=== PATIENT | female | born 1945 | race Hispanic/Latino ===

== ENCOUNTER → 2021-01-30 17:45 | Outpatient (CLI) | payer OTHER, SELFPAY ==
--- NOTE | ~2021-01-30 | MM_ITS ---
EXAMINATION: MM screening [facility] BI w ngozi HISTORY: Screening mammogram TECHNIQUE: Craniocaudal and mediolateral oblique 3-D tomosynthesis images were obtained and synthetic 2-D images were generated. CAD analysis was submitted and interpreted. COMPARISON: 04/09/2019, 07/04/2017 bilateral digital screening mammogram examinations BREAST PARENCHYMAL COMPOSITION: There are scattered areas of fibroglandular density. FINDINGS: There is no evidence of suspicious mass, calcification, or architectural distortion to sugg est malignancy in either breast. There has been no suspicious interval change. IMPRESSION: 1. No mammographic evidence of malignancy. 2. Recommend routine screening mammography in one year. BI-RADS Category 1: Negative Reviewed, dictated and finalized at location A.
== END ==
PROVIDERS: Visit Provider Family Medicine
DX: Z12.31 Encounter for screening mammogram for malignant neoplasm of breast (principal)
CPT/HCPCS: 77063; 77067

== ENCOUNTER → 2021-10-14 08:46 | Outpatient (CLI) | payer OTHER, SELFPAY ==
[2021-10-14 19:37] LABS: SARS-CoV-2 RNA PCR Positive
== END ==
PROVIDERS: PCP Family Medicine; Visit Provider Nurse Practitioner Gerontology
DX: U07.1 COVID-19 (principal)
CPT/HCPCS: C9803; U0003; U0005

== ENCOUNTER 2022-12-16 08:57 | Outpatient (CLI) | payer OTHER, SELFPAY ==
--- NOTE | ~2022-12-16 | XR_ITS ---
Supine and upright views of the abdomen Clinical history: Abdominal pain Findings: Bowel gas pattern is nonspecific. No evidence for obstruction or free air. Probable calcifi ed pelvic phleboliths. Osseous structures are intact. Impression: No significant abnormality is seen. Reviewed, dictated and finalized at [facility]. Impression: No significant abnormality is seen.
== END 2022-12-16 08:58 | disposition home or self-care (01) ==
PROVIDERS: PCP Family Medicine; Visit Provider Nurse Practitioner Gerontology
DX: R10.9 Unspecified abdominal pain (principal)
CPT/HCPCS: 74018

== ENCOUNTER 2023-03-24 10:03 | Outpatient (CLI) | payer OTHER, SELFPAY ==
--- NOTE | ~2023-03-24 | XR_ITS ---
Right Knee Technique: AP, lateral, and sunrise views were obtained. Clinical History: Pain Findings: No fracture or dislocation is seen. Osseous alignment is anatomic. Minimal degenerative spu rring noted. Soft tissues are unremarkable. No joint effusion is seen. Impression: Minimal degenerative spurring. Reviewed, dictated and finalized at location . Impression: Minimal degenerative spurring.
== END 2023-03-24 10:04 | disposition home or self-care (01) ==
PROVIDERS: PCP Family Medicine; Visit Provider Physician Assistant
DX: M25.561 Pain in right knee (principal)
CPT/HCPCS: 73562

== ENCOUNTER 2023-04-28 08:35 | Outpatient (CLI) | payer OTHER, SELFPAY ==
--- NOTE | ~2023-04-28 | MM_ITS ---
EXAMINATION: MM screening [facility] BI w ngozi HISTORY: Screening mammogram TECHNIQUE: Craniocaudal and mediolateral oblique 3-D tomosynthesis images were obtained and synthetic 2-D images were generated. CAD analysis was submitted and interpreted. COMPARISON: 01/30/2021, 04/09/2019, 07/04/2017 BREAST PARENCHYMAL COMPOSITION: There are scattered areas of fibroglandular density. FINDINGS: No suspicious mass, calcification, or architectural distortion are identified in either dilip ast to suggest malignancy. There has been no suspicious interval change. IMPRESSION: 1. No mammographic evidence of malignancy. 2. Recommend routine screening mammography in one year. BI-RADS Category 1: Negative Reviewed, dictated and finalized at location A.
== END 2023-04-28 08:36 | disposition home or self-care (01) ==
PROVIDERS: PCP Family Medicine; Visit Provider Family Medicine
DX: Z12.31 Encounter for screening mammogram for malignant neoplasm of breast (principal)
CPT/HCPCS: 77063; 77067

== ENCOUNTER 2024-02-28 10:43 | Outpatient (CLI) | payer OTHER, SELFPAY ==
--- NOTE | ~2024-02-28 | XR_ITS ---
Supine and upright views of the abdomen Clinical history: Constipation COMPARISON: 12/16/2022 Findings: Bowel gas pattern is nonspecific. No evidence for obstruction or free air. No abnormal mass lesion or calcification is seen. Mild degenerative change of the lumbar spine noted. Impression: Nonspecific bowel gas pattern. Reviewed, dictated and finalized at [facility]. Impression: Nonspecific bowel gas pattern.
== END 2024-02-28 10:44 | disposition home or self-care (01) ==
PROVIDERS: PCP Family Medicine; Visit Provider Family Medicine
DX: K59.00 Constipation, unspecified (principal)
CPT/HCPCS: 74018

== ENCOUNTER 2024-03-01 12:45 | Emergency (ER) | payer OTHER, SELFPAY ==
[2024-03-01] VITALS (11 sets, daily range): BP systolic 108–130; BP diastolic 61–92; PULSE 68–75; RESP 16–18; TEMP 36.6; O2SAT 95–98
--- NOTE | ~2024-03-01 | CT_ITS ---
EXAMINATION: CT abdomen pelvis w con DATE: 03/01/2024 15:51 INDICATION: Abdominal pain TECHNIQUE: Computed tomography (CT) of the abdomen and pelvis was performed with 100 cc Omnipaque 350 intravenous contrast. The dose-length product was 458.52 mGy-cm. Automated exposure control and iter ative reconstruction technique were employed. COMPARISON: None. FINDINGS: There is a complex ill-defined mass in the right adnexa measuring up to 9.5 cm craniocaudal , suspicious for ovarian neoplasm. There is moderate ascites. There is peritoneal and mesenteric stra nding anteriorly in the upper abdomen, suspicious for peritoneal carcinomatosis. Fatty infiltration o f the liver. Gallstones. Small hiatal hernia. There is dependent atelectasis. No significant vascular abnormality. No evidence for bowel obstruction. No free air. No retroperitoneal lymphadenopathy. The re is endometrial thickening. IMPRESSION: 1. Complex right adnexal mass, suspicious for ovarian cystadenocarcinoma. Consider correlation with u ltrasound. Possible peritoneal carcinomatosis with moderate ascites. 2: Fatty infiltration of the liver. 3: Cholelithiasis. 4: Thickened endomtrial complex. The differential diagnosis includes endometrial hyperplasia, polyp a nd carcinoma. Biopsy is recommended. Reviewed, dictated and finalized at location B. IMPRESSION: 1. Complex right adnexal mass, suspicious for ovarian cystadenocarcinoma. Consi ozzy correlation with ultrasound. Possible peritoneal carcinomatosis with modera te ascites. 2: Fatty infiltration of the liver. 3: Cholelithiasis. 4: Thickened endomtrial complex. The differential diagnosis includes endometria l hyperplasia, polyp and carcinoma. Biopsy is recommended.
--- NOTE | ~2024-03-01 | US_ITS ---
US pelvic complete Ordering provider: Pascual Morales MD History: . pelvic mass . Comparison: None. Technique: Transabdominal and endovaginal ultrasound of the pelvis (Doppler ultrasound interrogation techniques used as needed for this exam.) FINDINGS: CERVIX: Normal. UTERUS: Measures 8x 3.3x 6.1 cm in length which is within normal limits and is anteverted. No myomet rial masses. ENDOMETRIUM: Fluid is seen in the endometrial cavity.. CUL DE SAC seen bilaterally in the adnexal areas. RIGHT OVARY: size measuring 10.2x 5.2x 10.5 . Adnexal masses seen which appears heterogenous in echo genicity. LEFT OVARY: Not visualized. ADNEXA: Normal. No mass. IMPRESSION: Right ovarian mass. MRI or CT evaluation advised. Fluid seen in the bilateral adnexal areas. Fluid in the endometrial cavity. Clinical evaluation advised. Reviewed, dictated and finalized at location A.
[2024-03-01 14:49] LABS: Basophils Absolute Auto 0.1 K/mm3 (0.0-0.1); Basophils Percent Auto 0.7 % (0.2-1.2); Eosinophils Absolute Auto 0.1 K/mm3 (0-0.3); Eosinophils Percent Auto 1.2 % (0-4.4); Hematocrit 39.3 % (37.0-47.0); Hemoglobin 12.2 g/dL (12.0-15.0); Immature Granulocyte Absolute 0.02 K/mm3 (0.00-0.031); Immature Granulocyte Percent A 0.2 % (0-0.5); Lymphocytes Absolute Auto 1.54 K/mm3 (0.9-3.2); Lymphocytes Percent Auto 18.6 % (18.3-44.2); Mean Corpuscular Hemoglobin 28.7 pg (26-34); Mean Corpuscular Volume 92.5 fl (80-100); Mean Platelet Volume 8.9 fl (7.4-10.4); Monocytes Absolute Auto 0.7 K/mm3 (0.1-0.6); Monocytes Percent Auto 8.1 % (2.6-8.5); Neutrophils Absolute Auto 5.9 K/mm3 (1.3-6.7); Neutrophils Percent Auto 71.2 % (45.5-73.1); Platelet Count Result 396 k/mm3 (150-375); Red Blood Count 4.25 M/mm3 (4.2-5.4); Red Cell Distribution Width 12.9 % (11.5-14.5); White Blood Count 8.3 K/mm3 (4.5-10.0)
[2024-03-01 15:11] LABS: Appearance Urine Cloudy (Clear); Bacteria Urine None Seen /hpf; Bilirubin Urine 2+ (Negative); Blood Urine 1+ (Negative); Color Urine Dark Yellow (Yellow); Glucose Urine UA Negative (Negative); Ketones Urine 2+ mg/dL (Negative); Leukocyte Esterase Ur 1+ LEU/UL (Negative); Mucus Urine Present /lpf; Need Manual Microscopic Reviewed; Nitrate Urine Negative (Negative); Non Pathogenic Casts >20; Protein Urine 1+ mg/dL (Negative); Specific Grav Ur 1.023 (1.001-1.035); Squamous Epithelial Cell Urine Moderate /hpf (Few); pH Urine 5.5 (5.0-9.0)
[2024-03-01 15:12] LABS: Alanine Aminotransferase 19 U/L (6-35); Albumin Level 4.1 g/dL (3.5-5.1); Alkaline Phosphatase 82 U/L (38-126); Anion Gap 9 mmol/L (4-12); Aspartate Amino Transferase 35 U/L (14-36); Bilirubin,Total 0.8 mg/dL (0.2-1.3); Blood Urea Nitrogen 14 mg/dL (7-17); Carbon Dioxide 25 mmol/L (22-30); Chloride 100 mmol/L (98-107); Estimated CRCL calculation 39 ml/min; Estimated Glomerular Filt Rate > 60; Glucose 109 mg/dL (65-110); Lipase 304 U/L (23-300); Potassium 4.1 mmol/L (3.4-5.0); Sodium 134 mmol/L (137-145)
[2024-03-01 15:16] LABS: Add Urine Microscopic? YES
[2024-03-01] MEDS: SODIUM CHLORIDE 0.9% IV 1,000 ML 999 ML IV CONT (17:50)
--- NOTE | 2024-03-01 18:05 | ED.ABDPAIN ---
HPI - Abdominal Pain General Chief Complaint: Abdominal Pain Stated Complaint: hx of blockage, abd pain, diarrhea Time Seen by Provider: 03/01/24 15:28 Source: patient Mode of arrival: ambulatory Limitations: no limitations History of Present Illness HPI narrative: 78-year-old history of osteoporosis and dyslipidemia here with the complaints of left upper quadrant pain for past 1 week. Patient states that she saw primary was given linzess thinking in terms of constipation , pt stated her pain has been steady and she is worried about bowel obstruction ,She also complaints of occasional nausea but no vomiting MD elicited complaint: abdominal pain Onset (ago): week(s) (1) Pain Consistency: constant Location: LUQ Quality: aching Radiation: LUQ Migration to: suprapubic Exacerbating factors: nothing Relieving factors: nothing Associated symptoms: nausea Related Data Home Medications Medication Instructions Recorded Confirmed vibegron 75 mg tablet (Gemtesa) 75 mg PO DAILY 05/17/22 02/28/24 cephalexin 250 mg tablet 250 mg PO DAILY 03/24/23 02/28/24 Allergies Allergy/AdvReac Type Severity Reaction Status Date / Time Sulfa (Sulfonamide Allergy Unknown vision Verified 02/28/24 10:04 Antibiotics) loss,diarrhea Review of Systems Review of Systems: All systems reviewed & are unremarkable except as noted in HPI and below Constitutional: Constitutional: Reports no additional constitutional complaints Eyes: Eyes: Reports no additional eye complaints ENT: Reports system reviewed and no additional complaints, except as documented Cardiovascular: Cardiovascular: Reports no additional cardiovascular complaints Respiratory: Respiratory: Reports no additional respiratory complaints Gastrointestinal: Gastrointestinal: Reports as per HPI Musculoskeletal: Musculoskeletal: Reports no additional musculoskeletal complaints Neurologic: Reports system reviewed and no additional complaints, except as documented Psychiatric: Psychiatric: Reports no additional psychiatric complaints [facility] Past Medical History Medical History (Updated 03/01/24 @ 18:16 by Pascual Morales MD) Mixed hyperlipidemia Osteopenia Family History Family History Father Patient's father is Social History Social History Social History: Smoking status: Never smoker Second hand tobacco smoke exposure: No Alcohol intake: never Substance use: never Substance use type: does not use Do You Feel Safe in your Home?: Yes Lack of Transportation: No Lack of Food: Never True Current Housing: I Have Housing Concerned About Future Housing: No Difficulty Paying Gas/Electric Bills: No Difficulty Paying for Meds: No Currently Unemployed: YES Education: Decline to Answer Difficulty w/ Childcare or Family Care: No Living arrangements: with family Occupation/Education: retired Gender identity (if verbalized by the patient): Female Sexual Orientation (if Verbalized by the Patient): Straight or Heterosexual Exam Narrative: GENERAL: Well-appearing, well-nourished, and in no acute distress. HEAD: Normocephalic, atraumatic. EYES: PERRLA and EOMI. ENT: Nares clear, no rhinorrhea or epistaxis. Mucous membranes moist. NECK: Supple. CHEST: Clear to auscultation. No respiratory distress. HEART: Regular rate and rhythm. No murmur heard. Normal peripheral pulses. ABDOMEN: Soft, nontender, mildly distended, normal active bowel sounds. EXTREMITIES: Normal range of motion. No edema. SKIN: Warm, dry, no rash. NEURO: No focal deficits. Alert and oriented x3. PSYCH: Normal mood and affect. Course Course Emergency Course: Notified patient about her lab work, CT findings. I discussed with the Dr. Weaver as well. Spoke to Dr. Gray [facility] at [facility] will follow up in the office next wk , i
== END 2024-03-01 19:42 | disposition home or self-care (01) ==
PROVIDERS: Emergency Provider Family Medicine; PCP Family Medicine
DX: N94.89 Other specified conditions associated with female genital organs and menstrual cycle (principal); R10.84 Generalized abdominal pain; M81.0 Age-related osteoporosis without current pathological fracture; E78.2 Mixed hyperlipidemia; K76.0 Fatty (change of) liver, not elsewhere classified; K80.20 Calculus of gallbladder without cholecystitis without obstruction; R93.89 Abnormal findings on diagnostic imaging of other specified body structures; Z79.899 Other long term (current) drug therapy
CPT/HCPCS: 36415; 74177; 76856; 80053; 81001; 83690; 85025; 87086; 96360; 99284; J7030; Q9967

== ENCOUNTER 2025-04-12 13:06 | Outpatient (CLI) | payer OTHER, SELFPAY ==
--- NOTE | ~2025-04-12 | DEXA_ITS ---
Bone Density Report Name: KEIRY BATRES Age: 79 Sex: Female Ethnicity: Date of : 1945 Indication: postmenopausal; screening for osteoporosis; height loss; cancer; hysterectomy; Referring Provider: THERON PEREYRA Study: Bone densitometry was performed. Exam Date: April 12, 2025 Accession number: [id number] Bone Density: Region BMD T-score Z-score Classification AP Spine(L1-L4) 0.874 -1.6 1.1 Osteopenia Femoral Neck (Left) 0.642 -1.9 0.3 Osteopenia Total Hip (Left) 0.685 -2.1 0.0 Osteopenia Femoral Neck (Right) 0.574 -2.5 -0.3 Osteoporosis Total Hip (Right) 0.685 -2.1 0.0 Osteopenia Total Hip Mean 0.685 -2.1 0.0 Osteopenia World Health Organization criteria for BMD impression classify patients as: Normal (T-score at or above -1.0), Osteopenia (T-score between -1.0 and -2.5), or Osteoporosis (T-score at or below -2.5). 10-year Fracture Risk: FRAX not reported because: Some T-score for Spine Total or Hip Total or Femoral Neck at or below -2.5 Treated for osteoporosis Clinical Information Provided by Patient: Is being treated for osteoporosis Has used the following medications: Fosamax (i.e. alendronate), Vitamin D, Calcium Has the following medical conditions: Cancer, Hysterectomy Patient maximum height was 64 Menopause Age: 50 No regular weight bearing exercise Does not regularly consume dairy products Drinks caffeinated beverages Onset of menses at age 13 Number of children 2 Impression: The patient has osteoporosis, based on the Right Femoral Neck T-score. Discussion: It is important to ask patients whether they are taking their medications and to encourage continued and appropriate compliance with their osteoporosis therapies to reduce fracture risk. It is also important to review their risk factors and encourage appropriate calcium and vitamin D intakes, exercise, fall prevention and other lifestyle measures. Follow-Up: Consider a repeat BMD and Vertebral Fracture Assessment (VFA) exam in 2 years or sooner if medically necessary, to reassess this patient's status. Reported by: FARIDA on 04/12/2025 1:56:00 PM. Reviewed, dictated and finalized at location A.
--- OUTSIDE RECORDS SUMMARY | 2025-04-12 13:13 | XMS_ITS | Continuity of Care Document ---
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 [facility], [place], [place], [id number], [place]. tel:[phone] Family History Family Member Type Diagnosis Age At Onset No Information Payers Payer name Insurance type Covered republican ID Authoriza tigino(s) [facility] Custom Care CI [id number] Social History Type Description Quantity Date Captured Comments Sex Female Smoking Status No Information Chief Complaint And Reason For Visit No Information Reason For Referral Reason For Referral No Information History Of Present Illness Encounter Date Complaint History Of Prese nt Illness No Information Functional Status Date Functional Assessmen t No Information Instructions Date Instruction Additional Infor mation No Information Assessments Type Assessment Date No Information Patient Care Teams Name Effective Dates (start - stop) Status Members No Information
--- OUTSIDE RECORDS SUMMARY | 2025-04-12 13:13 | XMS_ITS | Referral Summary ---
Author Organization [facility] Address [address] [place] [address] Care Team Providers Care Solar Sales Manager Name Role Phone Meg Castillo MD Primary Care Provider Encounters Date Type Department Care Team Description 02/25/2025 Documentation [facility] Obstetrics and Gynecology [address] [facility] 13th [place] [address] Lorna Segovia RN 02/25/2025 10:20 AM CDT Office Visit [facility] Obstetrics and Gynecology [address] [facility] 13th [place] [address] Tone Cardona MD 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) 02/25/2025 8:00 AM CDT - 02/25/2025 11:59 PM CDT Hospital Encounter [facility] [address] [place] [address] Tone Cardona MD Malignant neoplasm of fallopian tube, unspecified laterality (HCC) Discharge Disposition: Discharge to home or self care from Last 3 Months Allergies Active Allergy Reactions Criticality Noted Date Comments Sulfa Other (See comments) Low 03/04/2024 Vision problems and diarrhea Paclitaxel Shortness of breath,Other (See comments),Chest tightness,Flushing (skin) High 04/16/2024 Abdominal cramping Docetaxel Shortness of breath,Other (See comments),Flushing (skin) High 05/07/2024 Tightness in chest, lower back pain Medications gabapentin (NEURONTIN) solution 250 mg/5 mL Take 6 mL (300 mg total) by mouth 2 (two) times a day 360 mL 1 4 Active alendronate (FOSAMAX) 70 mg tablet TAKE 1 TABLET BY MOUTH ONCE WEEKLY 4 Active montelukast (SINGULAIR) 10 mg tabletIndicatio ns: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 7 tablet Active simvastatin (ZOCOR) 20 mg tablet Take 1 tablet (20 mg total) by mouth daily Active Active Problems Problem Noted Date Diagnosed Date Malignant neoplasm of right fallopian tube 03/26 Requires daily management of epidural infusion 0 03/18/2024 Acute postoperative abdominal pain 03/12/2024 Pelvic mass 03/12/2024 Abdominal mass, unspecified abdominal location 0 03/05/2024 Immunizations Immunization Administration Dates Next Due COVID-19 mRNA (SocStock) 0.3 m L (30 mcg) vaccine (12 years and up) 05/19/2024 Influenza, Quadrivalent, Hig h Dose, Preservative Free, Intrr 07/09/2023,06/05/2022,06/02/2021 Influenza, Trivalent, High D ose, Split, Preservative Free, Intramuscular 05/19/2024,06/20/2016,06/24/2015 Influenza, Trivalent, IM (MDV) 06/26/2014,2012 Pneumococcal Conjugate PCV 13 06/20/2016 RSV Vaccine, Pref, Recombina nt, Subunit, Adjuvanted, PF, IM (Arexvy) 08/03/2023 ZOSTER Recombinant 12/31/2020 Social History Tobacco Use Types Packs/Day Years Used Date Smoking Tobacco: Never Passive Smoke Exposure: Never Smokeless Tobacco: Never Tobacco Cessation:Counseling Given: Not Answered AUDIT-C Answer Date Recorded Q1: How often do you have a drink containing alcohol? Never 09/21/2024 Q2: How many drinks containi ng alcohol do you have on a typical day when you are drinking? Patient does not drink Q3: How often do you have si x or more drinks on one occasion? Never 09/21/2024 Personal Safety Answer Date Recorded Have you ever been in or are you currently in a harmful physical or emotional relationship or is someone making you feel afraid or unsafe? 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 Gender Identity Not on file Sexual Orientation Not on file Last Filed Vital Signs Vital Sign Reading Time Taken Comments Blood Pressure 125/75 02/25/2025 11:00 AM CDT Pulse 65 02/25/2025 11:00 AM CDT Temperature 36.7 C (98 F) 02/25/2025 11:00 AM CDT Respiratory Rate 16 02/25/2025 11:00 AM CDT Oxygen Saturation 99% 02/25/2025 11:00 AM CDT Inhaled Oxygen Concentration - - Weight 66 kg (145 lb 8 oz) 02/25/2025 11:00 AM C DT Height 162 cm (5' 3.78) 02/25/2025 11:00 AM CDT Body Mass Index 25.15 02/25/2025 11:00 AM CDT Plan of Treatment Not on file Medical Devices Implanted Type Area Video Poker Floorman Device Identifier Shelf Expiration Date Model / Serial / Lot Ang[employer] Excela Low Porfile Power Port 8fr 1.6mm 1 Lumen [id number] - [id number] Implanted:Qty: 1 on 04/13/[address] [facility] [employer] 11/19/2028 [id number] / / [id number] Procedures Procedure Name Priority Date/Time Associated Diagnosis Comments MAGNESIUM Routine 02/26/2025 9:47 AM CDT Malignant neoplasm of right fallopian tube (HCC) COMPREHENSIVE METABOLIC PANEL Routine 02/26/2025 9:45 AM CDT Malignant neoplasm of right fallopian tube (HCC) CBC WITH AUTO DIFFERENTIAL Routine 02/26/2025 9:45 AM CDT Malignant neoplasm of right fallopian tube (HCC) CA 125 Routine 02/26/2025 9:45 AM CDT Malignant neoplasm of right fallopian tube (HCC) CT ABDOMEN PELVIS W CONTRAST Schedule Routine, Read Routine (OP Routine) 02/25/2025 9:14 AM CDT Malignant neoplasm of fallopian tube, unspecified laterality (HCC) from Last 3 Months Results * Magnesium (02/26/2025 9:47 AM CDT) Magnesium 2.1 1.5 - 2.5 mg/dL [facility] Blood 02/26/2025 9:47 AM CDT 02/26/2025 9:47 AM CDT us Premks Delgado Cardona MD LAB BLOOD ORDERABLES Fin al Result [facility] [address] [place] [address] * CBC with auto differential (02/26/2025 9:45 AM CDT) WBC 4.3 3.8 - 10.8 Thousand/u L [facility] RBC, POC 3.90 3.80 - 5.10 Million/uL [facility] Hgb 12.5 11.7 - 15.5 g/dL [facility] Hct 38.8 35.0 - 45.0 % [facility] MCV 99.5 80.0 - 100.0 fL [facility] MCH 32.1 27.0 - 33.0 pg [facility] MCHC 32.2 32.0 - 36.0 g/dL [facility] Comment: For adults, a slight decrease in the calculated MCHC value (in the range of 30 to 32 g/dL) is most likely not clinically significant; however, it should be interpreted with caution in correlation with other red cell parameters and the patient's clinical condition. Rdw 12.3 11.0 - 15.0 % [facility] Platelets 200 140 - 400 Thousand/u L [facility] MPV 9.7 7.5 - 12.5 fL [employer] Neutrophils, abs 2,339 1,500 - 7,800 cells/uL [employer] Lymphocytes, abs 1,492 850 - 3,900 cells/uL [employer] Monocyte abs 348 200 - 950 cells/uL [employer] Eosinophils, abs 90 15 - 500 cells/uL [employer] Basophils, abs 30 0 - 200 cells/uL [employer] Neutrophils 54.4 % [employer] Lymphocyte pct 34.7 % [employer] Monocytes 8.1 % [employer] Eosinophils 2.1 % [employer] Basophils 0.7 % [employer] Blood 02/26/2025 9:45 AM CDT 02/26/2025 9:46 AM CDT Narrative [facility] - 02/27/2025 1:42 AM CDT FASTING:NO FASTING: NO [facility] Delgado Cardona MD LAB BLOOD ORDERABLES Fin al Result Performing Organization Address City/[facility]/ZIP Co de Phone Number [facility] [address] [place] [address] * CA 125 (02/26/2025 9:45 AM CDT) CA 125 ag 10 <35 U/mL [employer] Comment: This test was performed using the Siemens Chemiluminescent method. Values obtained from different assay methods cannot be used interchangeably. CA 125 levels, regardless of value, should not be interpreted as absolute evidence of the presence or absence of disease. Blood 02/26/2025 9:45 AM CDT 02/26/2025 9:46 AM CDT Narrative [facility] - 02/27/2025 1:42 AM CDT FASTING:NO FASTING: NO [facility] Delgado Cardona MD LAB BLOOD ORDERABLES Fin al Result [facility] [address] [place] [address] * Comprehensive metabolic panel (02/26/2025 9:45 AM CDT) [facility] Glucose 99 65 - 99 mg/dL Maryam BritoAnimailBlanche Marquez Comment: Fasting reference interval BUN 13 7 - 25 mg/dL Maryam Marquez Creatinine 0.89 0.60 - 1.00 mg/dL Maryam [facility] eGFR 66 > OR = 60 mL/min/1.7 3m2 Maryam Marquez BUN/creat ratio SEE NOTE: 6 - 22 (calc) Maryam Marquez Comment: Not Reported: BUN and Creatinine are within reference range. Sodium 142 135 - 146 mmol/L Maryam Brit[facility]Bl[facility] Marquez Potassium, pl 5.0 3.5 - 5.3 mmol/L Mary[facility] Chloride 107 98 - 110 mmol/L Maryam [facility] CO2 31 20 - 32 mmol/L Maryam [facility] Calcium 9.2 8.6 - 10.4 mg/dL Maryam [facility] Protein, sr 6.7 6.1 - 8.1 g/dL Maryam [facility]AnimailBlanche Marquez Albumin 4.1 3.6 - 5.1 g/dL Maryam [facility] Mar[facility] GLOBULIN 2.6 1.9 - 3.7 g/dL (calc) Maryam [facility] Alb/glob ratio 1.6 1.0 - 2.5 (calc) Maryam [facility] Bilirubin, total 0.4 0.2 - 1.2 mg/dL Maryam BritoAnimailBlanche Marquez Alk phos 62 37 - 153 U/L Maryam [facility] AST 23 10 - 35 U/L Maryam Telsar PharmaBlanche Marquez ALT (SGPT) 21 6 - 29 U/L Maryam [facility] Blood 02/26/2025 9:45 AM CDT 02/26/2025 9:46 AM CDT Narrative [facility] - 02/27/2025 1:42 AM CDT FASTING:NO FASTING: NO us Premal Delgado Cardona MD LAB BLOOD ORDERABLES Fin al Result [facility] [address] [place] [address] * CT Abdomen Pelvis W Contrast (02/25/2025 9:14 AM CDT) Anatomical Region Laterality Modality Body N/A Computed Tomogra phy 02/25/2025 9:44 AM CDT Impressions 02/26/2025 1:18 PM CDT 1. No evidence of recurrent or metastatic disease in the abdomen or pelvis. 2. Resolution of right pelvic sidewall fluid collection. Dictated by: Bebeto Powell MD The radiology attending physician has personally reviewed this study, and had reviewed and/or edited this written report and agrees with it. Electronically signed by: Rosalia Blackburn M.D. 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 COMPARISON: CT dated 08/17/2024. FINDINGS: Mild dependent atelectasis within the lung bases. No pleural or pericardial effusion. No suspicious hepatic lesion. Portal and hepatic veins. No biliary ductal dilation. Cholelithiasis without evidence of acute cholecystitis. The spleen, adrenal glands, and pancreas are normal. The kidneys enhance symmetrically without hydronephrosis or nephrolithiasis. Small cyst of the right kidney. The urinary bladder is normal. There are post surgical changes of hysterectomy with bilateral salpingo-oophorectomy, omentectomy, and pelvic lymph node dissection. 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 Interval resolution of a fluid collection within the right lower quadrant, with associated fat stranding overlying the anterior abdominal wall from prior percutaneous drain. No bowel thickening or obstruction. No free fluid or intraperitoneal free air. No abdominal or pelvic lymphadenopathy. No omental or peritoneal disease. Abdominal aorta is normal in caliber. No suspicious lytic or blastic lesion. 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 COMPARISON: CT dated 08/17/2024. FINDINGS: Mild dependent atelectasis within the lung bases. No pleural or pericardial effusion. No suspicious hepatic lesion. Portal and hepatic veins. No biliary ductal dilation. Cholelithiasis without evidence of acute cholecystitis. The spleen, adrenal glands, and pancreas are normal. The kidneys enhance symmetrically without hydronephrosis or nephrolithiasis. Small cyst of the right kidney. The urinary bladder is normal. There are post surgical changes of hysterectomy with bilateral salpingo-oophorectomy, omentectomy, and pelvic lymph node dissection. 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 Interval resolution of a fluid collection within the right lower quadrant, with associated fat stranding overlying the anterior abdominal wall from prior percutaneous drain. No bowel thickening or obstruction. No free fluid or intraperitoneal free air. No abdominal or pelvic lymphadenopathy. No omental or peritoneal disease. Abdominal aorta is normal in caliber. No suspicious lytic or blastic lesion. IMPRESSION: 1. No evidence of recurrent or metastatic disease in the abdomen or pelvis. 2. Resolution of right pelvic sidewall fluid collection. Dictated by: Bebeto Powell MD The radiology attending physician has personally reviewed this study, and had reviewed and/or edited this written report and agrees with it. Electronically signed by: Rosalia Blackburn M.D. [facility] Delgado Cardona MD IM CT PROCEDURES Final Result from Last 3 Months Insurance Intern [place] ADVANTAGE CHOICE PPO [employer] ADVANTAGE CHOICE PPO Advance Directives For more information, please contact: [phone] Documents on File Type Date Recorded Patient Ship/Rec/Doc Control Expl anation ADVANCE DIRECTIVE 05/18/2024 11:53 AM Bridger r of Photo Retoucher-Medical * Full Code (Latest Code Status on File) Date Activated Date Inactivated Comments 09/21/2024 7:45 AM 09/22/2024 4:44 AM * Full Code Date Activated Date Inactivated Comments 09/07/2024 8:08 AM 09/08/2024 4:51 AM * Full Code Date Activated Date Inactivated Comments 08/28/2024 11:57 AM 08/29/2024 4:48 AM * Full Code Date Activated Date Inactivated Comments 04/13/2024 1:35 PM 04/14/2024 4:45 AM * Full Code Date Activated Date Inactivated Comments 03/12/2024 9:40 PM 03/18/2024 9:13 PM Care Teams Solar Sales Manager Relationship Specialty Start Date End Date Meg Castillo MD [address] [address] PCP - General Family Medicine 03/02/24
--- OUTSIDE RECORDS SUMMARY | 2025-04-12 13:13 | XMS_ITS | Clinical Summary ---
Author Organization [facility] Address [address] [place] [address] Care Team Providers Care Gis Engineer Name Role Phone Meg Castillo MD Primary Care Provider Allergies Active Allergy Reactions Criticality Noted Date [...] 7 morning before your treatment. 7 tablet 4 Active simvastatin (ZOCOR) 20 mg tablet Take 1 tablet (20 mg total) by mouth daily 4 Active Active Problems Problem Noted Date Diagnosed Date Malignant neoplasm of right fallopian tube 03/26 Requires daily management of epidural infusion 0 03/18/2024 Acute postoperative abdominal pain 03/12/2024 Pelvic mass 03/12/2024 Abdominal mass, unspecified abdominal location 0 03/05/2024 Encounters Date Type Department Care Team Description 02/25/2025 10:20 AM CDT Office Visit 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 Obstetrics and Gynecology [address] [facility] 13th [place] [address] Lorna Segovia RN from Last 3 Months Immunizations Immunization Administration Dates Next Due COVID-19 mRNA (Cranberry Chic) 0.3 m L (30 mcg) vaccine (12 years and up) 05/19/2024 Influenza, Quadrivalent, Hig h Dose, Preservative Free, Intrr 07/09/2023,06/05/2022,06/02/2021 Influenza, Trivalent, High D ose, Split, Preservative Free, Intramuscular 05/19/2024,06/20/2016,06/24/2015 Influenza, Trivalent, IM (MDV) 06/26/2014,2012 Pneumococcal Conjugate PCV 13 06/20/2016 RSV Vaccine, Pref, Recombina nt, Subunit, Adjuvanted, PF, IM (Arexvy) 08/03/2023 ZOSTER Recombinant 12/31/2020 Surgical History Surgery Date Site/Laterality Comments MYOMECTOMY ABDOMINAL APPROACH 09/19/1979 - 09/18/1980 US GUIDED BIOPSY ABDOMEN RETROPERITONEAL 03/06/2024 N/A PORT PLACEMENT CHEST >5 YEARS 04/13/2024 N/A US GUIDED ASPIRATION ABSCESS HEMATOMA CYST SOFT TISSUE 06/28/2024 N/A IMAGE GUIDED DRAINAGE PERITO RIKKI OR RETROPERITONEAL FLUID COLLECTION 08/28/2024 N/A Medical History Medical History Date Comments High cholesterol Ovarian cancer (HCC) Family History Medical History Relation Name Comments Anesthesia problems Neg Hx Social History Tobacco Use Types Packs/Day Years [...] on file 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 Gender Identity Not on file Sexual Orientation Not on file Obstetrics History Para Term AB IAB SAB Ectopic Multiple Livin g Live Births 2 2 2 2 Date Outcome GA Total Labor Labor/2nd/3rd Weight Sex Type Anes PTL Jerilyn A1 A5 Name Clin Term Vag-Spo nt Term Vag-Spo nt Last Filed Vital Signs Vital Sign Reading [...] 02/25/2025 11:00 AM CDT Plan of Treatment Health Maintenance Due Date Last Done Comments Depression Screening 1945 Hepatitis C Screening 1945 Osteoporosis Screening-Bone Density Scan 1945 DTaP/Tdap/Td Vaccine (1 - Tdap) 1956 Hepatitis B Screening 12/29/1963 Well Visit 65+ 2010 Pneumococcal vaccine 65+ (2 of 2 - PPSV23) 06/20/2017 06/20/2016 Zoster Vaccine (2 of 2) 02/25/2021 12/31/2020 Covid-19 Vaccine (8 - 2023-2 5 season) 2024 05/19/2024, 06/11/2023, 06/12/2022, Additional history exists Influenza Vaccine (#1) 2025 , 07/09/2023, 06/05/2022, Additional history exists Fall Risk Assessment 09/21/2025 09/21/2024 Medical Devices Implanted Type Area Vertical Lathe Operator Device Identifier Shelf Expiration Date Model / Serial / Lot [employer] Excela Low Porfile Power Port 8fr 1.6mm 1 Lumen [id number] - [id number] Implanted:Qty: 1 on 04/13/2024 at [facility] [employer] 11/19/2028 [id number] / / [id number] Procedures Procedure Name Priority Date/Time Associated Diagnosis [...] CDT) Magnesium 2.1 1.5 - 2.5 mg/dL [facility] Blood 02/26/2025 9:47 AM CDT 02/26/2025 9:47 AM CDT Tone Cardona MD LAB BLOOD ORDERABLES Fin al Result [employer] [address] [place] [address] * CBC with auto differential (02/26/2025 9:45 AM CDT) Pathologist [facility] WBC 4.3 3.8 - 10.8 Thousand/u L [employer] RBC, POC 3.90 3.80 - 5.10 Million/uL [facility] Hgb 12.5 11.7 - 15.5 g/dL [employer] Hct 38.8 35.0 - 45.0 % [facility] MCV 99.5 80.0 - 100.0 fL [facility] MCH 32.1 27.0 - 33.0 pg [employer] MCHC 32.2 32.0 - 36.0 g/dL [facility] Comment: For adults, a slight decrease in the calculated MCHC value (in the range of 30 to 32 g/dL) is most likely not clinically significant; however, it should be interpreted with caution in correlation with other red cell parameters and the patient's clinical condition. Rdw 12.3 11.0 - 15.0 % [facility] Platelets 200 140 - 400 Thousand/u L [email or web address] MPV 9.7 7.5 - 12.5 fL [email or web address] Neutrophils, abs 2,339 1,500 - 7,800 cells/uL [facility] Lymphocytes, abs 1,492 850 - 3,900 cells/uL [facility] Monocyte abs 348 200 - 950 cells/uL [facility] Eosinophils, abs 90 15 - 500 cells/uL [email or web address] Basophils, abs 30 0 - 200 cells/uL [facility] Neutrophils 54.4 % [facility] Lymphocyte pct 34.7 % [facility] Monocytes 8.1 % [facility] Eosinophils 2.1 % [facility] Basophils 0.7 % [facility] Blood 02/26/2025 9:45 AM CDT 02/26/2025 9:46 AM CDT Narrative [facility] - 02/27/2025 1:42 AM CDT FASTING:NO FASTING: NO [facility] Delgado Cardona MD LAB BLOOD ORDERABLES Fin al Result Performing Organization Address City/[facility]/ZIP Co de Phone Number [email or web address] [address] [place] [address] * CA 125 (02/26/2025 9:45 AM CDT) Pathologist [facility] CA 125 ag 10 <35 U/mL [email or web address] Comment: This test was performed using the Siemens Chemiluminescent method. Values obtained from different assay methods cannot be used interchangeably. CA 125 levels, regardless of value, should not be interpreted as absolute evidence of the presence or absence of disease. Blood 02/26/2025 9:45 AM CDT 02/26/2025 9:46 AM CDT Narrative [facility] - 02/27/2025 1:42 AM CDT FASTING:NO FASTING: NO [facility] MD LAB BLOOD ORDERABLES Fin al Result Performing Organization Address [facility] Co de Phone Number [employer] [address] [place] [address] * Comprehensive metabolic panel (02/26/2025 9:45 AM CDT) Pathologist [facility] Glucose 99 65 - 99 mg/dL [email or web address] Comment: Fasting reference interval BUN 13 7 - 25 mg/dL [email or web address] Creatinine 0.89 0.60 - 1.00 mg/dL [email or web address] Marquez eGFR 66 > OR = 60 mL/min/1.7 3m2 [email or web address] Marquez BUN/creat ratio SEE NOTE: 6 22 (calc) [facility] Comment: Not Reported: BUN and Creatinine are within reference range. Sodium 142 135 - 146 mmol/L [email or web address] [email or web address] Marquez Potassium, pl 5.0 3.5 - 5.3 mmol/L [facility] Chloride 107 98 - 110 mmol/L [facility] CO2 31 20 - 32 mmol/L [facility] Calcium 9.2 8.6 - 10.4 mg/dL [facility] Protein, sr 6.7 6.1 - 8.1 g/dL [facility] Albumin 4.1 3.6 - 5.1 g/dL [facility] GLOBULIN 2.6 1.9 - 3.7 g/dL (calc) [facility] Alb/glob ratio 1.6 1.0 - 2.5 (calc) [facility] Bilirubin, total 0.4 0.2 - 1.2 mg/dL [facility] Mar[facility] Alk phos 62 37 - 153 U/L [email or web address] Marquez AST 23 10 - 35 U/L [email or web address] Marquez ALT (SGPT) 21 6 - 29 U/L [facility] m[facility]ola Marquez Blood 02/26/2025 9:45 AM CDT 02/26/2025 9:46 AM CDT Narrative [facility] - 02/27/2025 1:42 AM CDT FASTING:NO FASTING: NO us Premwy Delgado Cardona MD LAB BLOOD ORDERABLES Fin al Result Performing Organization Address City/State/[facility] Co de Phone Number [email or web address] [address] [place] [address] * CT Abdomen Pelvis W Contrast (02/25/2025 [...] it. Electronically signed by: Rosalia Blackburn M.D. [facility] Delgado Cardona MD IMG CT PROCEDURES Final Result from Last 3 Months Insurance [employer] CHOICE PPO [employer] PPO Advance Directives For more information, please contact: [phone] Documents on File Type Date Recorded Patient Marketing Liaison Expl anation ADVANCE DIRECTIVE 05/18/2024 11:53 AM Bridger r of [employer] Help Desk Technician-Medical * Full Code (Latest Code Status on [...] 9:40 PM 03/18/2024 9:13 PM Care Teams Gis Engineer Relationship Specialty Start Date End Date Meg Castillo MD [address] [facility] [address] [place] [address] PCP - General Family Medicine 03/02/24
--- OUTSIDE RECORDS SUMMARY | 2025-04-12 13:13 | XMS_ITS | Clinical Summary ---
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 Gender Identity Not on file Sexual Orientation Not on file Plan of Treatment Health Maintenance Due Date Last Done Comments Hepatitis C Virus (HCV) Screening 1945 TdaP Immunization 1945 Zoster Immunization (1 of 2) 12/29/1995 Pneumococcal Immunization (50+ years) (2 of 2 - PPSV23) 06/20/2017 06/20/2016 Respiratory Syncytial Virus (RSV) Immunization (Adult) (1 - 1-dose 75+ series) 2020 SARS-COV-2 Immunization ( season) 2024 Influenza Immunization (#1) 05/20/202510/2015, 06/24/2015, 06/26/2014, Additional history exists Pneumococcal Immunization Combined Discontinued 06/20/2016 Hepatitis B Immunization Aged Out No longer eligible based on patient's age to complete this topic Human Papillomavirus (HPV) Immunization Aged Out No longer eligible based on patient's age to complete this topic Meningococcal Immunization (ACWY) Aged Out No longer eligible based on patient's age to complete this topic Rotavirus Immunization Aged Out No lo nger eligible based on patient's age to complete this topic
--- OUTSIDE RECORDS SUMMARY | 2025-04-12 13:13 | XMS_ITS ---
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 Past Treatment and Therapy Plans No past plan information found. Lifetime Dose Tracking * Chemical Lifetime Dose Automatic Entry Manual Entr y Fluoro Time 4.3 minutes 4.3 minutes 0 minutes Air kerma at the reference point (Ka,r) 20 mGy 2 0 mGy 0 mGy DLP 2,278 mGycm 2,278 mGycm 0 mGycm
== END 2025-04-12 13:07 | disposition home or self-care (01) ==
LOC: ANHIMG 13:11
PROVIDERS: PCP Family Medicine
DX: Z78.0 Asymptomatic menopausal state (principal); M85.88 Other specified disorders of bone density and structure, other site; M85.852 Other specified disorders of bone density and structure, left thigh; M85.851 Other specified disorders of bone density and structure, right thigh; M81.0 Age-related osteoporosis without current pathological fracture
CPT/HCPCS: 77080